=== PATIENT | female | born 1950 | race Caucasian/White ===

== ENCOUNTER 2019-02-09 12:31 | Outpatient (CLI) | payer MEDICARE | END 2019-02-09 23:59 | disposition home or self-care (01) | LOC: RAD 12:31 | PROVIDERS: ATTEND Physician Assistant Surgical | DX: S42.491D Other displaced fracture of lower end of right humerus, subsequent encounter for fracture with routine healing (principal); X58.XXXD Exposure to other specified factors, subsequent encounter ==

== ENCOUNTER 2020-07-07 13:19 | Outpatient (CLI) | payer MEDICARE ==
[2020-07-07] MEDS ORDERED: RIVA20TA PO (13:51)
[2020-07-07] MEDS ORDERED: AMIO100T4 PO (13:51)
[2020-07-07] MEDS ORDERED: ROSU20TA2 PO (13:51)
[2020-07-07] MEDS ORDERED: VITA400T6 PO (13:51)
[2020-07-07] MEDS ORDERED: METO100T5 PO (13:51)
[2020-07-07] MEDS ORDERED: CHOL10003 PO (13:51)
== END 2020-07-07 23:59 | disposition home or self-care (01) ==
LOC: STAR 13:19
PROVIDERS: ATTEND Surgery
DX: Z01.812 Encounter for preprocedural laboratory examination (principal); Z20.828 Contact with and (suspected) exposure to other viral communicable diseases; R94.31 Abnormal electrocardiogram [ECG] [EKG]
CPT/HCPCS: 87635; 93005

== ENCOUNTER 2020-07-12 12:23 | Day surgery (SDC) | payer MEDICARE ==
[~2020-07-12] VITALS: Ht 160 cm; Wt 63.4 kg
[~2020-07-12 12:23] MED LIST: AMIO100T4 PO; BUPIVACAINE/PF 0.25% ONE; CHOL10003 PO; EPINEPHRINE 1 MG/ML, 1ML ONE; METO100T5 PO; RIVA20TA PO; ROSU20TA2 PO; VITA400T6 PO
[2020-07-12] MEDS ORDERED: CHLORHEXIDINE 15 ML UDC ONE (12:46)
[2020-07-12] MEDS ORDERED: LACTATED RINGERS 1,000 ML IV SCH ×2 (13:00→15:00)
[2020-07-12] MEDS ORDERED: FENTANYL PF 250 MCG/5ML ONE (13:10)
[2020-07-12] MEDS ORDERED: DEXAMETHASONE 4 MG/ML, 1ML ONE (13:50)
[2020-07-12] MEDS ORDERED: BUPIVACAINE/PF-EPI 0.25% 1:200K INFIL ONE (13:50)
[2020-07-12] MEDS ORDERED: CEFOTETAN 2 GM ONE (13:50)
[2020-07-12] MEDS ORDERED: SUGAMMADEX 200 MG/2 ML IVPush ONE (13:50)
[2020-07-12] MEDS ORDERED: MEPERIDINE/PF 25MG/0.5ML IVPush PRN (14:00)
[2020-07-12] MEDS ORDERED: ACETAMINOPHEN 325 MG TABLET PO PRN (14:00)
[2020-07-12] MEDS ORDERED: PROMETHAZINE 25 MG/ML, 1ML IVPush PRN (14:00)
[2020-07-12] MEDS ORDERED: morphine SULFATE 10 MG/ML, 1ML IVPush PRN ×2 (14:00→15:00)
[2020-07-12] MEDS ORDERED: OXYcodone 5 MG/5 ML ORAL.SOL UDC PO PRN (14:00)
[2020-07-12] MEDS ORDERED: HALOPERIDOL 5 MG/ML IV PRN (14:00)
[2020-07-12] MEDS ORDERED: hydrALAzine 20 MG/ML, 1ML IV PRN (14:00)
[2020-07-12] MEDS ORDERED: LABETALOL 5MG/ML, 20ML IV PRN (14:00)
[2020-07-12] MEDS ORDERED: ONDANSETRON 2MG/ML, 2ML ONE (14:21)
[2020-07-12] MEDS ORDERED: ROCURONIUM 10MG/ML,5ML ONE (14:21)
[2020-07-12] MEDS ORDERED: GLYCOPYRROLATE 0.2MG/1ML, 5ML ONE (14:21)
[2020-07-12] MEDS ORDERED: NEOSTIGMINE 1 MG/ML, 10ML ONE (14:21)
[2020-07-12] MEDS ORDERED: PROPOFOL 10 MG/ML, 20ML ONE (14:21)
[2020-07-12] MEDS ORDERED: CEFAZOLIN 1,000 MG ONE (14:21)
[2020-07-12] MEDS ORDERED: FENTANYL PF 100 MCG/2ML ONE ×2 (14:22→14:51)
[2020-07-12] MEDS ORDERED: OXYcodone 5 MG/5 ML ORAL.SOL UDC ONE (14:51)
[2020-07-12] MEDS ORDERED: ONDANSETRON 2MG/ML, 2ML IVPush PRN (15:00)
[2020-07-12] MEDS ORDERED: OXYcodone IR 5MG TABLET PO PRN (15:00)
[2020-07-12] MEDS ORDERED: HYDROmorphone 1 MG/ML, 1ML INJ ONE (15:03)
[2020-07-12] MEDS: HYDROmorphone 1 MG/ML, 1ML INJ IVPush PRN ×4 (15:07→15:28)
[2020-07-12] MEDS: FENTANYL PF 100 MCG/2ML IV PRN ×2 (15:07→15:12)
[2020-07-12] MEDS ORDERED: HYDROmorphone 2 MG/ML, 1ML ONE (15:20)
[2020-07-12] MEDS ORDERED: KETOROLAC 30 MG/1 ML ONE (18:08)
[2020-07-12] MEDS ORDERED: KETOROLAC 30 MG/1 ML IVPush ONE (18:30)
== END 2020-07-12 18:55 | disposition home or self-care (01) ==
LOC: OUT 12:23
PROVIDERS: ATTEND Surgery
DX: K80.10 Calculus of gallbladder with chronic cholecystitis without obstruction (principal); K85.10 Biliary acute pancreatitis without necrosis or infection; I48.91 Unspecified atrial fibrillation; E78.5 Hyperlipidemia, unspecified; M19.90 Unspecified osteoarthritis, unspecified site; Z91.040 Latex allergy status; Z88.1 Allergy status to other antibiotic agents; Z88.2 Allergy status to sulfonamides; Z98.890 Other specified postprocedural states; Z79.899 Other long term (current) drug therapy; Z87.891 Personal history of nicotine dependence
CPT/HCPCS: 47562; 88304; C1760; J0171; J0690; J1100; J1170; J1885; J2405; J2704; J2710; J3010